=== PATIENT | female | born 1965 | race Caucasian/White ===

== ENCOUNTER 2018-10-25 05:48 | Day surgery (SDC) | payer BC ==
[2018-10-25] MEDS: SOD CHLORIDE 0.9% 1,000 ML IV (06:22)
[2018-10-25] MEDS: CYCLOPENTOLATE/PHENYLEPH 2 ML OPH OPER (06:23)
[2018-10-25] MEDS: TROPICAMIDE 1% 15 ML OPH OPER (06:23)
[2018-10-25] MEDS: DICLOFENAC 0.1% 2.5 ML OPH OPER (06:23)
[2018-10-25] MEDS: MOXIFLOXACIN 0.5% 3 ML OPH OPER (06:23)
[2018-10-25] MEDS ORDERED: DICLOFENAC 0.1% 2.5 ML OPH OPER ×2 (06:30→08:00)
[2018-10-25] MEDS ORDERED: LIDOCAINE 4% (MPF) 5 ML INJ (06:54)
[2018-10-25] MEDS: CEFAZOLIN 1 GM INJ (06:54)
[2018-10-25] MEDS: DEXAMETHASONE 4 MG/ML 1 ML INJ (06:54)
[2018-10-25] MEDS ORDERED: NA HYALURONATE/CHONDROITIN 0.5 ML SYG (06:54)
[2018-10-25] MEDS ORDERED: LIDOCAINE 1% (MPF) 10 ML INJ (06:54)
[2018-10-25] MEDS ORDERED: GENTAMICIN 80 MG INJ (06:54)
[2018-10-25] MEDS ORDERED: EPINEPHrine 1 MG INJ (06:54)
[2018-10-25] MEDS: CARBACHOL 0.01% 1.5 ML OPH INJ (06:54)
[2018-10-25] MEDS ORDERED: TETRACAINE 0.5% 4 ML OPH (06:55)
[2018-10-25] MEDS ORDERED: ONDANSETRON 4 MG INJ (07:00)
[2018-10-25] MEDS ORDERED: LIDOCAINE 2% (SDV) 5 ML INJ (07:00)
[2018-10-25] MEDS ORDERED: METOCLOPRAMIDE 10 MG INJ (07:00)
[2018-10-25] MEDS ORDERED: hydrALAzine 20 MG INJ IV (08:00)
[2018-10-25] MEDS ORDERED: ONDANSETRON 4 MG INJ IV (08:00)
[2018-10-25] MEDS ORDERED: DIPHENHYDRAMINE 50 MG INJ IV (08:00)
[2018-10-25] MEDS ORDERED: HYDROmorphONE 1 MG/5 ML IV SYRINGE IV (08:00)
[2018-10-25] MEDS ORDERED: SOD CHLORIDE 0.9% 1,000 ML IV (08:00)
[2018-10-25] MEDS ORDERED: MEPERIDINE 25 MG INJ IV (08:00)
[2018-10-25] MEDS ORDERED: LABETALOL HCL 20MG INJ IV (08:00)
[2018-10-25] MEDS ORDERED: FENTAnyl 50 MCG/ML VIAL IV (08:00)
[2018-10-25] MEDS ORDERED: MOXIFLOXACIN 0.5% 3 ML OPH OPER (08:00)
[2018-10-25] MEDS ORDERED: CYCLOPENTOLATE/PHENYLEPH 2 ML OPH OPER (08:00)
[2018-10-25] MEDS ORDERED: TROPICAMIDE 1% 15 ML OPH OPER (08:00)
[2018-10-25] MEDS ORDERED: MIDAZOLAM 1 MG/ML 2 ML INJ (09:05)
[2018-10-25] MEDS ORDERED: PROPOFOL 20 ML (09:06)
== END 2018-10-25 10:00 | disposition home or self-care (01) ==
LOC: SDS 05:48
DX: H25.11 Age-related nuclear cataract, right eye (principal); I10 Essential (primary) hypertension; E78.5 Hyperlipidemia, unspecified; E11.9 Type 2 diabetes mellitus without complications; E03.9 Hypothyroidism, unspecified; Z79.84 Long term (current) use of oral hypoglycemic drugs
CPT/HCPCS: 66984; 82962